=== PATIENT | female | born 1945 | race Caucasian/White ===

== ENCOUNTER 2018-05-31 15:02 | Emergency (ER) | payer OTHER ==
[~2018-05-31] VITALS: Ht 175.3 cm; Wt 68.0 kg
[~2018-05-31 15:02] MED LIST: CRUTCH3 USE; HYDACE5 PO
[2018-05-31] MEDS ORDERED: SPIRIVA RESPIMAT4 GM IH (15:14)
[2018-05-31] MEDS ORDERED: Advair Hfa 230-12 GM (15:14)
[2018-05-31] MEDS ORDERED: LEVSOD50 PO (15:14)
[2018-05-31 15:53] LABS: BASOPHILS ABSOLUTE AUTO 0.04 K/mm3 (0.00-0.23); BASOPHILS PERCENT AUTO 1 % (0-2); EOSINOPHILS PERCENT AUTO 2 % (0-6); Hematocrit 40.4 % (33.0-51.0); Hemoglobin 12.7 g/dL (11.5-16.0); IMMATURE GRAN ABSOLUTE AUTO 0.01 K/mm3 (0.00-0.10); IMMATURE GRAN PERCENT AUTO 0 % (0-1); LYMPHOCYTES ABSOLUTE AUTO 1.14 K/mm3 (0.84-5.20); LYMPHOCYTES PERCENT AUTO 20 % (21-46); MONOCYTES ABSOLUTE AUTO 0.37 K/mm3 (0.16-1.47); MONOCYTES PERCENT AUTO 7 % (4-13); Mean Corpuscular HGB 29.7 pg (26.0-34.0); Mean Corpuscular HGB Conc 31.4 g/dL (31.5-36.5); Mean Corpuscular Volume 95 fL (80-100); Mean Platelet Volume 10.6 fL (9.1-12.4); NEUTROPHILS ABSOLUTE AUTO 4.06 K/mm3 (1.96-9.15); NEUTROPHILS PERCENT AUTO 71 % (41-73); Platelet Count 210 K/mm3 (150-400); RDW Coefficient Variation 12.3 % (11.7-14.2); RDW Standard Deviation 42.7 fL (35.1-46.3); Red Blood Cell Count 4.27 M/mm3 (3.80-5.20); White Blood Cell Count 5.72 K/mm3 (4.00-11.30)
[2018-05-31 16:17] LABS: Alanine Aminotransfer (ALT/SGP 22 U/L (12-78); Albumin, Blood 3.6 g/dL (3.4-5.0); Albumin/Globulin Ratio 0.9 (0.8-1.8); Alk Phos 64 U/L (50-136); Anion Gap 6 mmol/L (6-16); Aspartate Aminotrans (AST/SGOT 20 U/L (12-37); Bilirubin, Total 0.5 mg/dL (0.1-1.0); Blood Urea Nitrogen 8 mg/dL (8-24); Bun/Creatinine Ratio 11.2 (12.0-20.0); CO2, Blood 27 mmol/L (21-32); Calcium, Blood 8.6 mg/dL (8.5-10.1); Chloride, Blood 107 mmol/L (98-108); Creatinine, Blood 0.71 mg/dL (0.40-1.00); Globulin, Blood 4.1 g/dL (2.2-4.0); Glomerular Filtration Rate >60 (60-); Glucose, Blood 87 mg/dL (70-99); Potassium, Blood 3.7 mmol/L (3.5-5.5); Sodium, Blood 140 mmol/L (136-145); Total Protein, Blood 7.7 g/dL (6.4-8.2); Troponin I <0.015 ng/mL (0.000-0.040)
== END 2018-05-31 18:04 | disposition home or self-care (01) ==
LOC: ER 15:02
PROVIDERS: Emergency Medicine
DX: R07.89 Other chest pain (principal); Z79.899 Other long term (current) drug therapy; J44.9 Chronic obstructive pulmonary disease, unspecified; Z87.891 Personal history of nicotine dependence
CPT/HCPCS: 36415; 71046; 71260; 80053; 83690; 84484; 85025; 93005; 93010; 99284-25; Q9967

== ENCOUNTER → 2018-10-29 | Outpatient (CLI) | payer OTHER ==
[~2018-10-29] MED LIST changes: +Advair Hfa 230-12 GM; +LEVSOD50 PO; +SPIRIVA RESPIMAT4 GM IH
== END | disposition home or self-care (01) ==
LOC: PLD 08:41 → LAB SHORT 08:41
DX: C44.321 Squamous cell carcinoma of skin of nose (principal)
CPT/HCPCS: 88305

== ENCOUNTER → 2021-04-05 | Outpatient (CLI) | payer OTHER | LOC: LAB SHORT 11:37 | DX: C44.311 Basal cell carcinoma of skin of nose (principal) | CPT/HCPCS: 88305 ==

== ENCOUNTER → 2021-06-24 | Outpatient (CLI) | payer OTHER | END | disposition home or self-care (01) | LOC: LAB SHORT 11:05 | DX: D04.62 Carcinoma in situ of skin of left upper limb, including shoulder (principal) | CPT/HCPCS: 88305 ==

== ENCOUNTER → 2021-06-30 | Outpatient (CLI) | payer OTHER | END | disposition home or self-care (01) | LOC: LAB SHORT 15:03 | DX: D04.62 Carcinoma in situ of skin of left upper limb, including shoulder (principal) | CPT/HCPCS: 88305 ==

== ENCOUNTER 2022-04-07 16:47 | Emergency (ER) | payer OTHER ==
[~2022-04-07] VITALS: Ht 175.3 cm; Wt 63.5 kg
[2022-04-07 17:59] LABS: Influenza A, PCR NEGATIVE (NEGATIVE); Influenza B, PCR NEGATIVE (NEGATIVE); Resp Syncytial Virus, PCR NEGATIVE (NEGATIVE)
[2022-04-07 18:03] LABS: SARS-Cov-2 (COVID-19) PCR, MMC POSITIVE (NEGATIVE)
== END 2022-04-07 19:50 | disposition home or self-care (01) ==
LOC: ER 16:47
PROVIDERS: Physician Assistant
DX: U07.1 COVID-19 (principal); Z79.899 Other long term (current) drug therapy
CPT/HCPCS: 0241U

== ENCOUNTER → 2022-12-16 | Outpatient (CLI) | payer OTHER ==
[2022-12-16 17:00] LABS: BASOPHILS ABSOLUTE AUTO 0.04 K/mm3 (0.00-0.23); BASOPHILS PERCENT AUTO 1 % (0-2); EOSINOPHILS ABSOLUTE AUTO 0.07 K/mm3 (0.00-0.68); EOSINOPHILS PERCENT AUTO 2 % (0-6); Hematocrit 37.1 % (33.0-51.0); Hemoglobin 12.1 g/dL (11.5-16.0); IMMATURE GRAN PERCENT AUTO 0 % (0-1); LYMPHOCYTES ABSOLUTE AUTO 1.12 K/mm3 (0.84-5.20); LYMPHOCYTES PERCENT AUTO 28 % (21-46); MONOCYTES PERCENT AUTO 7 % (4-13); Mean Corpuscular HGB 29.6 pg (26.0-34.0); Mean Corpuscular HGB Conc 32.6 g/dL (31.5-36.5); Mean Corpuscular Volume 91 fL (80-100); Mean Platelet Volume 10.2 fL (9.1-12.4); NEUTROPHILS PERCENT AUTO 62 % (41-73); Platelet Count 169 K/mm3 (150-400); RDW Coefficient Variation 12.3 % (11.7-14.2); RDW Standard Deviation 40.9 fL (35.1-46.3); Red Blood Cell Count 4.09 M/mm3 (3.80-5.20); White Blood Cell Count 4.03 K/mm3 (4.00-11.30)
[2022-12-16 19:53] LABS: Albumin, Blood 3.6 g/dL (3.4-5.0); Albumin/Globulin Ratio 1.1 (0.8-1.8); Bilirubin, Total 0.5 mg/dL (0.1-1.0); Bun/Creatinine Ratio 17.6 (12.0-20.0); Calcium, Blood 8.8 mg/dL (8.5-10.1); Creatinine, Blood 0.74 mg/dL (0.40-1.00); Globulin, Blood 3.4 g/dL (2.2-4.0); Potassium, Blood 3.8 mmol/L (3.5-5.5); Thyroid Stimulating Hormone 0.76 uIU/mL (0.360-4.800)
== END ==
LOC: LAB 15:49 → LAB SHORT 15:49
PROVIDERS: Family Medicine
DX: Z13.6 Encounter for screening for cardiovascular disorders (principal); F03.90 Unspecified dementia, unspecified severity, without behavioral disturbance, psychotic disturbance, mood disturbance, and anxiety
CPT/HCPCS: 36415; 80053; 82607; 82746; 84443; 85025; 86592

== ENCOUNTER 2023-06-14 22:19 | Inpatient (IN) | payer OTHER ==
[~2023-06-14] VITALS: Ht 177.8 cm; Wt 63.2 kg
[~2023-06-14 22:19] MED LIST changes: +EUTHYROX50 MCG PO; -LEVSOD50 PO
[2023-06-14 22:35] LABS: BASOPHILS ABSOLUTE AUTO 0.04 K/mm3 (0.00-0.23); BASOPHILS PERCENT AUTO 1 % (0-2); EOSINOPHILS ABSOLUTE AUTO 0.06 K/mm3 (0.00-0.68); EOSINOPHILS PERCENT AUTO 1 % (0-6); Hemoglobin 11.1 g/dL (11.5-16.0); IMMATURE GRAN ABSOLUTE AUTO 0.11 K/mm3 (0.00-0.10); IMMATURE GRAN PERCENT AUTO 1 % (0-1); LYMPHOCYTES ABSOLUTE AUTO 1.23 K/mm3 (0.84-5.20); LYMPHOCYTES PERCENT AUTO 16 % (21-46); MONOCYTES ABSOLUTE AUTO 0.46 K/mm3 (0.16-1.47); MONOCYTES PERCENT AUTO 6 % (4-13); Mean Corpuscular HGB 29.6 pg (26.0-34.0); Mean Corpuscular HGB Conc 32.6 g/dL (31.5-36.5); Mean Corpuscular Volume 91 fL (80-100); Mean Platelet Volume 10.1 fL (9.1-12.4); NEUTROPHILS PERCENT AUTO 75 % (41-73); Platelet Count 159 K/mm3 (150-400); RDW Coefficient Variation 12.4 % (11.7-14.2); Red Blood Cell Count 3.75 M/mm3 (3.80-5.20)
[2023-06-14 22:51] LABS: Albumin, Blood 3.5 g/dL (3.4-5.0); Albumin/Globulin Ratio 1.1 (0.8-1.8); Bilirubin, Total 0.4 mg/dL (0.1-1.0); Bun/Creatinine Ratio 22.4 (12.0-20.0); Calcium, Blood 8.8 mg/dL (8.5-10.1); Creatinine, Blood 0.71 mg/dL (0.40-1.00); Globulin, Blood 3.1 g/dL (2.2-4.0); Potassium, Blood 3.8 mmol/L (3.5-5.5); Total Protein, Blood 6.6 g/dL (6.4-8.2)
[2023-06-14] MEDS ORDERED: FentaNYL Citrate 50 MCG/ML 2 ML Injection IV ONE (23:35)
[2023-06-15 02:40] LABS: Source, Urine Clean Catch
[2023-06-15 02:43] LABS: Bilirubin, Urine Neg (Neg); Blood, Urine Neg (Neg); Glucose Qualitative, Urine Neg (Neg); Ketones, Urine Neg (Neg); Leukocyte Esterase, Urine Neg (Neg); Nitrite, Urine Neg (Neg); Protein, Urine Neg (Neg); Urobilinogen, Urine NORM (Normal)
[2023-06-15] MEDS ORDERED: Ketorolac Tromethamine 30mg Vial IV ONE (02:55)
[2023-06-15 02:59] LABS: Appearance, Urine Clear (Clear); Color, Urine Yellow (P-Yellow)
[2023-06-15] MEDS ORDERED: NS 1,000 ML IV SCH (04:15)
[2023-06-15] MEDS ORDERED: FentaNYL Citrate 50 MCG/ML 2 ML Injection IV PRN (06:10)
[2023-06-15 06:29] VITALS: BP 140/91
[2023-06-15 07:44] VITALS: BP 116/75
[2023-06-15] MEDS ORDERED: FLU VACC QS2023-24(6MOS UP)/PF 60 MCG/0.5 ML SYRINGE IM SCH (09:30)
[2023-06-15] MEDS ORDERED: HYDROcodone 5-APAP 325 TAB PO PRN (09:30)
[2023-06-15] MEDS ORDERED: Ondansetron HCl 2 MG / ML 2ML Vial IV PRN (09:35)
[2023-06-15] MEDS ORDERED: Ondansetron 4 MG TAB PO PRN (09:35)
[2023-06-15 15:11] VITALS: BP 102/59
--- NOTE | 2023-06-15 16:47 | NUR ---
SHIFT SUMMARY PATIENT IS ALERT AND ORIENTED X3. PATIENT HAS HAD NO ACUTE EVENTS THIS SHIFT. VITAL SIGNS REVIEWED. PATIENT HAS NOT BEEN IMPULSIVE THIS SHIFT. ORTHO WAS CONSULTED AND DETERMINED PELVIC FX DOES NOT NEED SURGERY AND ONLY NEED REHAB. PT AND OT WILL SEE PATIENT IN THE AM. PATIENT HAS BEEN IN PAIN AND MEDICATED PER EMAR. PATIENT HAS NOT HAD ANY COMPLAINTS OF SOB, NAUSEA, VOMITTING THIS SHIFT. BED ALARM IS ON. BED IN LOCKED AND LOWEST POSITION. CALL LIGHT IN PLACE. WILL MONITOR UNTIL SHIFT CHANGE.
[2023-06-15 20:22] VITALS: BP 129/77
[2023-06-16 03:03] VITALS: BP 148/72
--- NOTE | 2023-06-16 03:52 | NUR ---
CAPSULE FILLING MACHINE OPERATOR SUMMARY PT SLEPT THROUGH THE NIGHT, WAKING TWICE. PT UNABLE TO TELL ME HER BIRTHDAY. SHE WAS CONFUSED ABOUT THE DATE AND TIME. SHE ASKED ME TO REPEAT THE TIME 3 TIMES UNTIL I TOLD HER THAT IT WAS THE MIDDLE OF THE NIGHT. SHE THEN DECIDED TO TRY AND GO BACK TO SLEEP. PURWICK IN PLACE AND PT RESTING COMFORTABLY. PT MEDICATED FOR L HIP PAIN WITH NORCO X1. NO ACUTE CHANGES THIS SHIFT. 06/16/23 JENNIFER CABRERA RN
[2023-06-16] MEDS ORDERED: Levothyroxine Sodium 0.05 MG Tab PO SCH (06:00)
[2023-06-16 07:31] VITALS: BP 135/84
--- NOTE | 2023-06-16 15:22 | NUR ---
SHIFT SUMMARY MS NERY REBOLLEDO IS CONFUSED, BUT CALM, PLEASANT AND WANING IN HER CONFUSEION AND ABLE TO HAVE APPROPRIATE CONVERSATIONS. UP TO THE BATHROOM SEVERAL TIMES WITH 1 PERSON ASSIST, GAIT BELT AND FWW. STEADY BUT SHE NEEDS FREQUENT REMINDERS ON DIRECTION AND HOW TO USE THE WALKER. SHE SAT UP IN THE CHAIR A COUPLE OF TIMES, WORKED WITH O.T. AND P.T. HER VISITED HER TODAY. EMESIS X 1 EARLY THIS MORNING WITH NO REOCCURANCE. PAIN REASONABLY WELL CONTROLLED WITH FENTANYL AND NORCO. BED AND CHAIR ALARMS IN USE. CALL LIGHT IN REACH.
[2023-06-16 16:18] VITALS: BP 108/62
[2023-06-16 20:43] VITALS: BP 117/61
--- NOTE | 2023-06-17 04:25 | NUR ---
END OF SHIFT SUMMARY PT A&O x1-2 FLUCTUATING; PT UNABLE TO RECALL HER FULL NAME NOR HER . PT IMPULSIVE, PT GOT UP OOB ON HER OWN. BED ALARM TURNED ON. PT REMINDED TO USE CALL LIGHT FOR ASSISTANCE WITH TOILETING. PT 1P SBA WITH FWW AND GB FOR SAFETY. PT CONTINENT OF B/B. PT C/O PAIN TO L HIP AFTER USING THE RESTROOM. PAIN MANAGED WITH PRN IV FENTANYL, WHICH WAS EFFECTIVE. 0415: PT APPEARS TO BE RESTING PEACEFULLY IN BED. CALL LIGHT WITHIN REACH, WCTM.
[2023-06-17 04:49] VITALS: BP 125/68
[2023-06-17 06:19] LABS: BASOPHILS ABSOLUTE AUTO 0.03 K/mm3 (0.00-0.23); BASOPHILS PERCENT AUTO 1 % (0-2); EOSINOPHILS ABSOLUTE AUTO 0.12 K/mm3 (0.00-0.68); EOSINOPHILS PERCENT AUTO 3 % (0-6); Hematocrit 30.7 % (33.0-51.0); IMMATURE GRAN ABSOLUTE AUTO 0.03 K/mm3 (0.00-0.10); IMMATURE GRAN PERCENT AUTO 1 % (0-1); LYMPHOCYTES ABSOLUTE AUTO 0.72 K/mm3 (0.84-5.20); LYMPHOCYTES PERCENT AUTO 15 % (21-46); MONOCYTES ABSOLUTE AUTO 0.42 K/mm3 (0.16-1.47); MONOCYTES PERCENT AUTO 9 % (4-13); Mean Corpuscular HGB 29.5 pg (26.0-34.0); Mean Corpuscular HGB Conc 32.6 g/dL (31.5-36.5); Mean Corpuscular Volume 91 fL (80-100); Mean Platelet Volume 10.2 fL (9.1-12.4); NEUTROPHILS ABSOLUTE AUTO 3.46 K/mm3 (1.96-9.15); NEUTROPHILS PERCENT AUTO 72 % (41-73); Platelet Count 107 K/mm3 (150-400); RDW Coefficient Variation 12.5 % (11.7-14.2); RDW Standard Deviation 40.9 fL (35.1-46.3); Red Blood Cell Count 3.39 M/mm3 (3.80-5.20); White Blood Cell Count 4.78 K/mm3 (4.00-11.30)
[2023-06-17 08:15] LABS: Bun/Creatinine Ratio 17.3 (12.0-20.0); Calcium, Blood 8.3 mg/dL (8.5-10.1); Creatinine, Blood 0.64 mg/dL (0.40-1.00); Potassium, Blood 3.9 mmol/L (3.5-5.5)
[2023-06-17 08:54] VITALS: BP 94/66
[2023-06-17 08:55] VITALS: BP 94/66
[2023-06-17 09:15] VITALS: BP 100/59
[2023-06-17] MEDS ORDERED: Polyethylene Glycol 3350 17 gm PO PRN (10:40)
[2023-06-17 15:47] VITALS: BP 101/63
--- NOTE | 2023-06-17 15:48 | NUR ---
SHIFT NOTE MS NERY REBOLLEDO WAS ORIENTATED TO HERSELF, LOCATION, THAT SHE WAS HERE AFTER FALLING, NOT TO DATE. C/O HEADACHE AND HIP PAIN THIS MORNING - HIP PAIN EASED WITH NORCO AND HEADACHE WENT AWAY. C/O CONSTIPATION. GIVEN MIRILAX AND PRUNE JUICE, AWAITING RESULTS. AMBULATING WITH 1 PERSON STAND BY ASSIST, GAIT BELT AND WALKER TO THE BATHROOM AND CHAIR SEVERAL TIMES. SHE IS USING WALKER BETTER TODAY AND HAS BEEN STEADY MOVING AROUND. SHE FORGETS TO USE CALL LIGHT, BED AND CHAIR ALARMS IN USE. VISITING NOW. SHE HAS BEEN SCRATCHING HER BUTTOCKS CAUSING RED SCRATCH WHITE AND SMALL SKIN WOUNDS. ZINC OINTMENT APLIED AFTER EACH BATHROOM VISIT WITH SOME RELIEF.
[2023-06-17 19:32] VITALS: BP 126/75
[2023-06-18 04:01] VITALS: BP 125/72
--- NOTE | 2023-06-18 04:32 | NUR ---
END OF SHIFT SUMMARY PT A&O x2-3, VSS, AFEBRILE. PT SLEPT WELL THROUGHOUT THE NIGHT. PT IMPULSIVE AND GOT UP A COUPLE TIMES DURING THE NIGHT. BED ALARM TURNED ON FOR SAFETY. PRN NORCO GIVEN FOR PAIN TO L HIP, WHICH WAS EFFECTIVE. FREQUENT SAFETY CHECKS COMPLETED THROUGHOUT THE SHIFT. PT EDUCATION PROVIDED REGARDING FALL PREVENTION, WILL CONTINUE TO REINFORCE IMPORTANCE OF CALLING BEFORE GETTING UP OOB. 1 BROWN COW GIVEN TO HELP PT HAVE A BOWEL MOVEMENT. BOWEL TONES HEARD, ABD TENDER TO TOUCH, PT STATED SHE IS PASSING GAS. CALL LIGHT WITHIN REACH, WCTM.
[2023-06-18 07:34] VITALS: BP 121/70
[2023-06-18] MEDS ORDERED: Psyllium 1 EA Pack PO SCH (09:00)
[2023-06-18] MEDS ORDERED: Metoprolol Succinate 25 MG TABCR PO SCH (09:00)
[2023-06-18] MEDS ORDERED: Enoxaparin 40 MG/0.4 ML SYR SC SCH (13:00)
--- NOTE | 2023-06-18 16:13 | NUR ---
SHIFT SUMMARY MS NERY REBOLLEDO IS ORIENTATED TO SELF, MONTH, REASON FOR BEING IN HOSPITAL AND SOMETIMES TO HOSPITAL. SHE HAS BEEN UP TO THE BATHROOM WITH GB, FWW AND 1 PERSON ASSIST. SHE IS REASONABLY STEADY, NEEDING SOME DIRECTION SHE IS FORGETFUL. SHE HAS NOT HAD A BM DESPITE TAKING MULTIPLE LAXATIVES, PRUNE JUICE AND PO FLUIDS ENCOURAGED. PLAN TO CONTINUE TO ENCOURAGE MORE MOBILITY. PAIN CONTROLLED WITH NORCO PO, NO IV FENTANYL GIVEN FOR PAIN. IN CHAIR WITH CALL LIGHT IN REACH AND CHAIR ALARM ON. SHE DOES NOT USE CALL LIGHT.
[2023-06-18 16:37] VITALS: BP 113/65; BP 127/66
[2023-06-18 20:05] VITALS: BP 116/64
--- NOTE | 2023-06-19 00:50 | NUR ---
06/18/231944 PT SITTING IN CHAIR, STATES PAIN IS A ZERO BUT INCREASES WITH MOVEMENT. GEAR CODING MACHINE OPERATOR ABOUT TO ASSIST PT BACK TO MED, WILL MEDICATE WITH PAIN MED NOW AND EVAL FOR EFFECT. BRUISE ON L SIDE, REDNESS ON BOTTOM FROM SCRATCHING/ITCHY. NO OTHER APPARENT SIGNS OF DISTRESS. CALL LIGHT IS IN REACH. PT HAS CHAIR ALARM ON.
--- NOTE | 2023-06-19 01:11 | NUR ---
06/18/23 2200 PT LYING IN BED, EYES CLOSED, APPEARS TO BE RESTING. BREATHING IS EVEN, UNLABORED. NO APPARENT SIGNS OF DISTRESS. CALL LIGHT IS IN REACH. BED ALARM IS ON.
--- NOTE | 2023-06-19 01:12 | NUR ---
0030 MELTING SUPERVISOR IN PT'S ROOM ASSISTING THEM TO THE BSC, PT DENIES NEED FOR ANYTHING ELSE AT THIS TIME. NO OTHER APPARENT SIGNS OF DISTRESS. CALL LIGHT IS IN REACH.
--- NOTE | 2023-06-19 02:53 | NUR ---
0200 PT LYING IN BED, EYES CLOSED, APPEARS TO BE RESTING. BREATHING IS EVEN, UNLABORED. NO APPARENT SIGNS OF DISTRESS. CALL LIGHT IS IN REACH. BED ALARM IS ON.
[2023-06-19 03:19] VITALS: BP 135/79
--- NOTE | 2023-06-19 04:59 | NUR ---
PT WAS ASSISTED TO BATHROOM AND BACK TO BED, REQUESTED AND RECIEVED PAIN MEDS, WILL EVAL FOR EFFECT. DENIES NEED FOR ANYTHING ELSE AT THIS TIME. NO OTHER APPARENT SIGNS OF DISTRESS. CALL LIGHT IS IN REACH .BED ALARM IS ON.
--- NOTE | 2023-06-19 04:59 | NUR ---
PT IS AAO X 2-3, ON RA. WAS NOT ABLE TO TOLERATE THE SCD'S BUT HAS ANTIEMBOLIC STOCKINGS ON. PAIN IN L HIP AND PEVIC AREA, GOT NORCO 2 X 2. BRUISE ON L SIDE. BOTTOM RED FROM STRATCHING/ITCHING, USING CREAM ON BOTTOM.
--- NOTE | 2023-06-19 07:49 | NUR ---
0630 PT LYING IN BED, EYES CLOSED, APPEARS TO BE RESTING. BREATHING IS EVEN, UNLABORED. NO APPARENT SIGNS OF DISTRESS. CALL LIGHT IS IN REACH. BED ALARM IS ON. NO OTHER CHANGES THIS SHIFT.
[2023-06-19 08:04] VITALS: BP 119/66
[2023-06-19 08:45] LABS: BASOPHILS ABSOLUTE AUTO 0.04 K/mm3 (0.00-0.23); BASOPHILS PERCENT AUTO 1 % (0-2); EOSINOPHILS ABSOLUTE AUTO 0.14 K/mm3 (0.00-0.68); EOSINOPHILS PERCENT AUTO 4 % (0-6); Hematocrit 33.8 % (33.0-51.0); Hemoglobin 10.7 g/dL (11.5-16.0); IMMATURE GRAN ABSOLUTE AUTO 0.01 K/mm3 (0.00-0.10); IMMATURE GRAN PERCENT AUTO 0 % (0-1); LYMPHOCYTES ABSOLUTE AUTO 0.82 K/mm3 (0.84-5.20); LYMPHOCYTES PERCENT AUTO 21 % (21-46); MONOCYTES ABSOLUTE AUTO 0.36 K/mm3 (0.16-1.47); MONOCYTES PERCENT AUTO 9 % (4-13); Mean Corpuscular HGB 29.2 pg (26.0-34.0); Mean Corpuscular HGB Conc 31.7 g/dL (31.5-36.5); Mean Corpuscular Volume 92 fL (80-100); Mean Platelet Volume 10.2 fL (9.1-12.4); NEUTROPHILS ABSOLUTE AUTO 2.51 K/mm3 (1.96-9.15); NEUTROPHILS PERCENT AUTO 65 % (41-73); Platelet Count 156 K/mm3 (150-400); RDW Coefficient Variation 12.5 % (11.7-14.2); RDW Standard Deviation 42.5 fL (35.1-46.3); Red Blood Cell Count 3.66 M/mm3 (3.80-5.20); White Blood Cell Count 3.88 K/mm3 (4.00-11.30)
[2023-06-19 09:09] LABS: Bun/Creatinine Ratio 18.3 (12.0-20.0); Calcium, Blood 8.6 mg/dL (8.5-10.1); Creatinine, Blood 0.6 mg/dL (0.40-1.00)
[2023-06-19] MEDS ORDERED: Bisacodyl 5 MG TabEC PO PRN (09:45)
[2023-06-19] MEDS ORDERED: Bisacodyl 10 MG Supp PR PRN (09:45)
[2023-06-19] MEDS ORDERED: Sennosides 8.6 MG Tab PO PRN (09:45)
[2023-06-19] MEDS ORDERED: Norco 5-325 Ta1 EACH PO (14:47)
[2023-06-19] MEDS ORDERED: METO25ER PO (14:47)
[2023-06-19 16:15] LABS: SARS-Cov-2 (COVID-19) PCR, MMC NEGATIVE (NEGATIVE)
--- NOTE | 2023-06-19 18:50 | NUR ---
SUMMARY- PT A/O X3, FORGETFUL TO USE CALL LIGHT, NEEDS FREQ REORIENTATING AND REMINDERS. BED AND CHAIR ALARM SET OFF A FEW TIMES TODAY. PT IS SBA WITH WALKER, PAIN IN L HIP WITH AMBULATION, BUT HAS GOOD STRENGTH AND GAIT. UP IN CHAIR MOST OF THE DAY. NORCO FOR PAIN EFFECTIVE. PLAN FOR DC TO [facility]45./ TOLERATING FOOD AND FLUID. REPORTED TO TOO GALLARDO RN. REPORTED TO RN AT [facility].
== END 2023-06-19 19:30 | DRG 536 ==
LOC: ER 22:19 → MEDS 22:20 → ER 22:20 → MEDS 22:20 → SURS 22:20 → MEDS 22:21 → ER 22:21 → MEDS 22:21 → SURS 06-15 04:30 → MEDS 06-15 04:30 → SURS 06-15 04:30 → MEDS 06-15 06:17 → SURS 06-15 06:17 → MEDS 06-15 09:29 → SURS 06-16 16:09 → MEDS 06-16 16:09
PROVIDERS: Emergency Medicine; Family Medicine; Hospitalist; ADMIT Surgery
DX: S32.512A Fracture of superior rim of left pubis, initial encounter for closed fracture (principal); S32.110A Nondisplaced Zone I fracture of sacrum, initial encounter for closed fracture; S32.592A Other specified fracture of left pubis, initial encounter for closed fracture; E86.0 Dehydration; I10 Essential (primary) hypertension; E89.0 Postprocedural hypothyroidism; F03.90 Unspecified dementia, unspecified severity, without behavioral disturbance, psychotic disturbance, mood disturbance, and anxiety; J44.9 Chronic obstructive pulmonary disease, unspecified; M81.0 Age-related osteoporosis without current pathological fracture; W01.0XXA Fall on same level from slipping, tripping and stumbling without subsequent striking against object, initial encounter; Y93.K1 Activity, walking an animal; Z87.891 Personal history of nicotine dependence; Z79.890 Hormone replacement therapy; Z11.52 Encounter for screening for COVID-19
CPT/HCPCS: 36415; 72192; 73502; 74177; 80048; 80053; 81003; 85025; 93005; 93010; 96374-59; 96375; 96376; 97116; 97162; 97165; 97530; 97535; 99285-25; A9270; G0378; J1650; J1885; J3010; J7030; Q9967; U0002

== ENCOUNTER 2023-12-27 12:10 | Day surgery (SDC) | payer OTHER ==
[~2023-12-27] VITALS: Ht 177.8 cm; Wt 56.9 kg
[~2023-12-27 12:10] MED LIST changes: +Balanced Salt Epinephrine Irrigation Solution 500 mL IR SCH; +Lidocaine HCl/Pf 1% 5 ML VIAL ONE; +Lidocaine HCl/Pf 1% 5 ML VIAL XX SCH; +METO25ER PO; +METO50ER PO; +Moxifloxacin HCL 0.5 MG/0.1 ML 0.4MLSYR LEFTEYE SCH; +NS 500 ML IV ONE; +Norco 5-325 Ta1 EACH PO; +PHENYLEPHRINE\\TROPICAMIDE\\TETRACAINE OPHTHALMIC DILATING SOLN LEFTEYE PRN; +Povidone-Iodine 450 DROP/30 ML Solution LEFTEYE SCH; +Triamcinolone Inj Susp 40 MG / ML 1ML Vial INJ SCH; +Triamcinolone Inj Susp 40 MG / ML 1ML Vial ONE
[2023-12-27] MEDS ORDERED: Lactated Ringer's 1,000 ML IV ONE (12:45)
[2023-12-27] MEDS ORDERED: Midazolam HCl 1MG / ML 2ML Vial ONE ×2 (13:13→14:42)
[2023-12-27] MEDS ORDERED: FentaNYL Citrate 50 MCG/ML 2 ML Injection ONE (13:13)
[2023-12-27] MEDS ORDERED: NS 500 ML IV ONE (13:20)
[2023-12-27 14:14] VITALS: BP 138/64
[2023-12-27] MEDS ORDERED: HydrALAZINE HCl 20 MG / ML 1ML Vial ONE (14:30)
[2023-12-27] MEDS ORDERED: Ondansetron HCl 2 MG / ML 2ML Vial ONE (15:30)
[2023-12-27] MEDS ORDERED: Dexamethasone Sod Phos 10 MG/ML 1ML VIAL ONE (15:30)
== END 2023-12-27 14:21 | disposition home or self-care (01) ==
LOC: ORSCSDS 12:10
PROVIDERS: Ophthalmology
PROC: 08RK3JZ Replacement of Left Lens with Synthetic Substitute, Percutaneous Approach (ICD-10-PCS; principal; 2023-12-27 13:30)
DX: H25.812 Combined forms of age-related cataract, left eye (principal); Z96.1 Presence of intraocular lens; I10 Essential (primary) hypertension; F03.90 Unspecified dementia, unspecified severity, without behavioral disturbance, psychotic disturbance, mood disturbance, and anxiety; Z79.899 Other long term (current) drug therapy
CPT/HCPCS: J0360; J1100; J2001; J2250; J2405; J3010; J3301; J7040; V2632

== ENCOUNTER 2024-06-01 18:59 | Observation (INO) | payer OTHER ==
[~2024-06-01] VITALS: Ht 170.2 cm; Wt 61.2 kg
[~2024-06-01 18:59] MED LIST changes: -Balanced Salt Epinephrine Irrigation Solution 500 mL IR SCH; -Lidocaine HCl/Pf 1% 5 ML VIAL ONE; -Lidocaine HCl/Pf 1% 5 ML VIAL XX SCH; -Moxifloxacin HCL 0.5 MG/0.1 ML 0.4MLSYR LEFTEYE SCH; -NS 500 ML IV ONE; -PHENYLEPHRINE\\TROPICAMIDE\\TETRACAINE OPHTHALMIC DILATING SOLN LEFTEYE PRN; -Povidone-Iodine 450 DROP/30 ML Solution LEFTEYE SCH; -Triamcinolone Inj Susp 40 MG / ML 1ML Vial INJ SCH; -Triamcinolone Inj Susp 40 MG / ML 1ML Vial ONE
[2024-06-01 19:39] LABS: BASOPHILS ABSOLUTE AUTO 0.01 K/mm3 (0.00-0.23); BASOPHILS PERCENT AUTO 0 % (0-2); EOSINOPHILS ABSOLUTE AUTO 0.01 K/mm3 (0.00-0.68); EOSINOPHILS PERCENT AUTO 0 % (0-6); Hematocrit 40.6 % (33.0-51.0); Hemoglobin 13.5 g/dL (11.5-16.0); IMMATURE GRAN ABSOLUTE AUTO 0.03 K/mm3 (0.00-0.10); IMMATURE GRAN PERCENT AUTO 0 % (0-1); LYMPHOCYTES ABSOLUTE AUTO 0.38 K/mm3 (0.84-5.20); LYMPHOCYTES PERCENT AUTO 5 % (21-46); MONOCYTES ABSOLUTE AUTO 0.43 K/mm3 (0.16-1.47); MONOCYTES PERCENT AUTO 5 % (4-13); Mean Corpuscular HGB 30.3 pg (26.0-34.0); Mean Corpuscular HGB Conc 33.3 g/dL (31.5-36.5); Mean Corpuscular Volume 91 fL (80-100); Mean Platelet Volume 10.7 fL (9.1-12.4); NEUTROPHILS ABSOLUTE AUTO 7.42 K/mm3 (1.96-9.15); NEUTROPHILS PERCENT AUTO 90 % (41-73); Platelet Count 119 K/mm3 (150-400); RDW Coefficient Variation 13.2 % (11.7-14.2); RDW Standard Deviation 43.9 fL (35.1-46.3); Red Blood Cell Count 4.46 M/mm3 (3.80-5.20); White Blood Cell Count 8.28 K/mm3 (4.00-11.30)
[2024-06-01 19:47] LABS: Albumin, Blood 3.2 g/dL (3.4-5.0); Albumin/Globulin Ratio 0.8 (0.8-1.8); Bilirubin, Total 0.3 mg/dL (0.1-1.0); Bun/Creatinine Ratio 47.7 (12.0-20.0); Calcium, Blood 8.9 mg/dL (8.5-10.1); Creatinine, Blood 0.48 mg/dL (0.40-1.00); Globulin, Blood 3.8 g/dL (2.2-4.0); Potassium, Blood 4.4 mmol/L (3.5-5.5)
[2024-06-01] MEDS ORDERED: Aspirin 325 MG Tab PO ONE (19:55)
[2024-06-01] MEDS ORDERED: Clopidogrel Bisulfate 75 MG Tab PO ONE (19:55)
[2024-06-01 21:45] LABS: Influenza A, PCR NEGATIVE (NEGATIVE); Influenza B, PCR NEGATIVE (NEGATIVE); Resp Syncytial Virus, PCR NEGATIVE (NEGATIVE); SARS-Cov-2 (COVID-19) PCR, MMC NEGATIVE (NEGATIVE)
[2024-06-01 23:27] LABS: Source, Urine Straight Cath
[2024-06-01 23:29] LABS: Bilirubin, Urine Neg (Neg); Blood, Urine Neg (Neg); Glucose Qualitative, Urine Neg (Neg); Ketones, Urine Neg (Neg); Leukocyte Esterase, Urine Neg (Neg); Nitrite, Urine Neg (Neg); Protein, Urine 2+ (Neg); Specific Gravity, Urine 1.025 (1.003-1.022); Urobilinogen, Urine NORM (Normal)
[2024-06-01 23:43] LABS: Appearance, Urine Hazy (Clear); Color, Urine Yellow (P-Yellow)
[2024-06-01 23:44] LABS: Bacteria Few /hpf; Red Blood Cells, Urine 0-2 /hpf (0-2); Squamous Epithelial Cells Few /hpf (Few); White Blood Cells, Urine 0-2 /hpf (0-5)
[2024-06-02] MEDS ORDERED: FLU VACC TS2024-25(6MOS UP)/PF 45 MCG/0.5 ML SYRINGE IM ONE (00:25)
[2024-06-02] MEDS ORDERED: Ondansetron HCl 2 MG / ML 2ML Vial IV PRN (00:25)
[2024-06-02 00:32] LABS: U Amphetamine Screen Not Detected; U Barbituate Screen Not Detected; U Benzodiazapine Screen Not Detected; U Cocaine Screen Not Detected; U Methadone Screen Not Detected; U Methamphetamine Screen Not Detected; U Opiates Screen DETECTED; U Phencyclidine Screen Not Detected
[2024-06-02 00:33] LABS: U Buprenorphine Screen Not Detected; U Cannabinoids Screen Not Detected; U Oxycodone Screen Not Detected
[2024-06-02] MEDS ORDERED: FentaNYL Citrate 50 MCG/ML 2 ML Injection IV ONE (00:55)
[2024-06-02] MEDS ORDERED: Atorvastatin 40 MG Tab PO SCH (01:00)
[2024-06-02] MEDS ORDERED: OLANZapine 10 MG Vial IM ONE (02:55)
[2024-06-02] MEDS ORDERED: NS 1,000 ML IV SCH (04:17)
[2024-06-02 04:43] LABS: BASOPHILS ABSOLUTE AUTO 0.01 K/mm3 (0.00-0.23); BASOPHILS PERCENT AUTO 0 % (0-2); EOSINOPHILS ABSOLUTE AUTO 0.01 K/mm3 (0.00-0.68); EOSINOPHILS PERCENT AUTO 0 % (0-6); Hematocrit 39.5 % (33.0-51.0); IMMATURE GRAN ABSOLUTE AUTO 0.02 K/mm3 (0.00-0.10); IMMATURE GRAN PERCENT AUTO 0 % (0-1); LYMPHOCYTES ABSOLUTE AUTO 0.33 K/mm3 (0.84-5.20); LYMPHOCYTES PERCENT AUTO 5 % (21-46); MONOCYTES ABSOLUTE AUTO 0.25 K/mm3 (0.16-1.47); MONOCYTES PERCENT AUTO 4 % (4-13); Mean Corpuscular HGB 30.3 pg (26.0-34.0); Mean Corpuscular HGB Conc 32.9 g/dL (31.5-36.5); Mean Corpuscular Volume 92 fL (80-100); Mean Platelet Volume 10.3 fL (9.1-12.4); NEUTROPHILS ABSOLUTE AUTO 5.75 K/mm3 (1.96-9.15); NEUTROPHILS PERCENT AUTO 90 % (41-73); Platelet Count 98 K/mm3 (150-400); RDW Coefficient Variation 13.2 % (11.7-14.2); RDW Standard Deviation 44.6 fL (35.1-46.3); Red Blood Cell Count 4.29 M/mm3 (3.80-5.20); White Blood Cell Count 6.37 K/mm3 (4.00-11.30)
[2024-06-02 05:11] LABS: Albumin, Blood 3.1 g/dL (3.4-5.0); Albumin/Globulin Ratio 0.9 (0.8-1.8); Bilirubin, Total 0.4 mg/dL (0.1-1.0); Bun/Creatinine Ratio 43.9 (12.0-20.0); Calcium, Blood 8.7 mg/dL (8.5-10.1); Creatinine, Blood 0.46 mg/dL (0.40-1.00); Globulin, Blood 3.4 g/dL (2.2-4.0); Potassium, Blood 3.9 mmol/L (3.5-5.5); Total Protein, Blood 6.5 g/dL (6.4-8.2)
--- NOTE | 2024-06-02 06:13 | NUR ---
SHIFT SUMMARY PT ADMITTED TO [facility] AT 0155. PT RESTLESS AND AGITATED, UNABLE TO FOLLOW ANY DIRECTIONS, PT ABLE TO TALK, BUT WORDS NOT IN CONTEXT WITH QUESTIONS ASKED. PT NOT ORIENTED AT ALL, UNABLE TO STATE NAME, AND DOES NOT RESPOND WHEN NAME IS CALLED. , ARCHIE (PHONE # [phone]) AT BEDSIDE, STATES PT WITH DEMENTIA, BUT AT BASELINE KNOWS HER NAME, CAN HAVE CONVERSATIONS, AND FOLLOWS DIRECTION. FURTHER STATES PT IS COMPLETELY CONT. OF BOTH BLADDER AND BOWEL AT BASELINE. PT ASSISTED TO BSC WITH 2 MAX ASSIST, BUT DID NOT VOID. NO VOID SINCE PT ARRIVED TO UNIT. PT CONTINUED TO BE RESTLESS/AGITATED/ TRYING TO GET OUT OF BED WHEN DR AT BEDSIDE- ONE TIME ORDER FOR ZYPREXA GIVEN PER EMAR. PT CURRENTLY RESTING WITH EYES CLOSED. PT IS NPO- UNABLE TO PERFORM BEDSIDE SWALLOW STUDY DUE TO INABILITY TO FOLLOW ANY DIRECTION. PICTURES TAKEN OF BILATERAL FEET/TOES, RIGHT CALF SCAB, AND RIGHT ARM SCAB. LEGS/FEET BILAT ARE RED/ SWOLLEN WITH BLACK AREAS ON TIPS OF MULTIPLE TOES. PEDAL PULSES WITH DOPPLER. PT IS INCREASINGLY AGITATED WHEN FEET ARE TOUCHED. BED IN LOWEST POSITION, CALL LIGHT WITHIN REACH, SIDERAILS UP X3, BED ALARM ON.
[2024-06-02 07:32] VITALS: BP 119/85
--- NOTE | 2024-06-02 08:56 | NUR ---
CALL TO PATIENT'S , ARCHIE, TO COMPLETE MRI SCREENING FORM. COMPLETED AND FAXED TO MRI.
[2024-06-02] MEDS ORDERED: Metoprolol Succinate 50 MG TABCR PO SCH (09:00)
[2024-06-02] MEDS ORDERED: Clopidogrel Bisulfate 75 MG Tab PO SCH (09:00)
[2024-06-02] MEDS ORDERED: Enoxaparin 40 MG/0.4 ML SYR SC SCH (09:00)
[2024-06-02] MEDS ORDERED: Aspirin 81 MG Chew PO SCH (09:00)
[2024-06-02] MEDS ORDERED: Sodium Chloride 0.45% 1,000 ML IV SCH (15:30)
[2024-06-02 16:18] VITALS: BP 97/59
--- NOTE | 2024-06-02 16:55 | NUR ---
PT WAS AWAKE IN THE MORNING BUT WAS UNABLE TO FOLLOW ANY COMMAND AND SPEECH WAS VERY GARBBLED. UNSAFE TO GIVE MEDICATIONS TO PT AND TO DO A ANITA BEDSIDE SWALLOW EVAL. MD AWARE. PT WAS SWITCHED OVER TO DNR STATUS. PT WAS ALSO RETAINING WATER AND WAS UNABLE TO VOID. THIS NURSE STRIGHT CATHED PT X2 DURING THE SHIFT AND MD ORDERS PLACED FOR Q6 BLADDER SCAN WITH STRAIGHT CATH. SEE CHART FOR DETAILS ON VOID AMOUNT.
[2024-06-02 20:56] VITALS: BP 109/73
[2024-06-03 03:38] VITALS: BP 116/75
--- NOTE | 2024-06-03 05:59 | NUR ---
PT UNABLE TO FOLLOW ANY DIRECTION, DOES NOT SEEM TO UNDERSTAND WHAT IS BEING SAID. PT DOES SAY SOME WORDS, BUT THEY DO NOT PERTAIN TO THE SITUATION. PT DOES SAY "OUCH" AND "HURTS" WHEN HER FEET OR LEGS ARE TOUCHED. PT IS ALLEN TO TURN HERSELF WELL IN THE BED AND REPOSITIONS SELF. PT RESTLESS/ AGITATED AT TIMES, BUT CALMS QUICKLY. PT STRAIGHT CATH'D PER ORDERS, BUT FIGHTS THE ENTIRE TIME. PT HAD NO SPONTANEOUS VOIDS. ATTEMPTED ORAL CARE MULTIPLE TIMES, BUT PT FIGHTS THIS WELL. PT REMAINS NPO WITH CONTINUOUS IVF RUNNING. BED IN LOWEST POSITION, CALL LIGHT WITHIN REACH, SIDERAILS UP X3.
[2024-06-03 06:11] LABS: BASOPHILS ABSOLUTE AUTO 0.01 K/mm3 (0.00-0.23); BASOPHILS PERCENT AUTO 0 % (0-2); EOSINOPHILS ABSOLUTE AUTO 0.02 K/mm3 (0.00-0.68); EOSINOPHILS PERCENT AUTO 1 % (0-6); Hematocrit 39.5 % (33.0-51.0); Hemoglobin 12.9 g/dL (11.5-16.0); IMMATURE GRAN ABSOLUTE AUTO 0.01 K/mm3 (0.00-0.10); IMMATURE GRAN PERCENT AUTO 0 % (0-1); LYMPHOCYTES ABSOLUTE AUTO 0.39 K/mm3 (0.84-5.20); LYMPHOCYTES PERCENT AUTO 9 % (21-46); MONOCYTES PERCENT AUTO 7 % (4-13); Mean Corpuscular HGB 30.4 pg (26.0-34.0); Mean Corpuscular HGB Conc 32.7 g/dL (31.5-36.5); Mean Corpuscular Volume 93 fL (80-100); Mean Platelet Volume 10.8 fL (9.1-12.4); NEUTROPHILS ABSOLUTE AUTO 3.68 K/mm3 (1.96-9.15); NEUTROPHILS PERCENT AUTO 84 % (41-73); Platelet Count 85 K/mm3 (150-400); RDW Coefficient Variation 13.6 % (11.7-14.2); RDW Standard Deviation 45.6 fL (35.1-46.3); Red Blood Cell Count 4.24 M/mm3 (3.80-5.20); White Blood Cell Count 4.41 K/mm3 (4.00-11.30)
[2024-06-03 06:32] LABS: Albumin, Blood 2.8 g/dL (3.4-5.0); Anion Gap 9 mmol/L (3-11); Blood Urea Nitrogen 14 mg/dL (8-24); Bun/Creatinine Ratio 29.8 (12.0-20.0); CO2, Blood 28 mmol/L (21-32); Chloride, Blood 107 mmol/L (98-108); Creatinine, Blood 0.47 mg/dL (0.40-1.00); Glomerular Filtration Rate 99 (60-); Glucose, Blood 63 mg/dL (70-99); Phosphorus, Blood 1.8 mg/dL (2.5-4.9); Potassium, Blood 4.1 mmol/L (3.5-5.5); Sodium, Blood 140 mmol/L (136-145)
--- NOTE | 2024-06-03 07:28 | NUR ---
ASSUMED CARE OF PATIENT. PATIENT SLEEPING SUPINE c HOB ELEVATED. 1/2 NS RUNNING. NO THRASHING OR PULLING AT LINES NOTED.
[2024-06-03 08:08] VITALS: BP 115/56
[2024-06-03] MEDS ORDERED: Sodium Phosphate 20 MM in Dextrose 5% 500 ML IV STA (09:07)
[2024-06-03] MEDS ORDERED: D5W-1/2NS 1,000 ML IV SCH (09:10)
[2024-06-03] MEDS ORDERED: Dextrose 50% 50 ML Vial IV PRN (10:00)
[2024-06-03] MEDS ORDERED: Dextrose 50% 50 ML Vial IV ONE (10:00)
--- NOTE | 2024-06-03 11:11 | NUR ---
PALLIATIVE CARE EVALUATION COLLABORTATIVE VISIT WITH BEDSIDE RN, PROVIDER AND THIS PC RN. NICKY IS NOT FOLLOWING DIRECTIONS. SPEECH THERAPY REPORTED TO THIS PC RN SHE WAS NOT ABLE TO COMPLETE BEDSIDE SWALLOW EVAL PT WOULD NOT OPEN HER MOUTH AND WAS TURNING HER HEAD AWAY. THIS PC RN ATTEMPTED TO HAND NICKY A WARM WASHCLOTH TO WASH HER FACE SHE WAS ABLE TO MOVE HER ARMS ABOVE HER HEAD. PT PULLED HER HAND AWAY WHEN THE WASH CLOTH TOUCHED HER HAND. SHE ALLOWED THIS PC RN TO WASH HER FACE THEN PULLED AWAY WITH ORAL CARE. BEDSIDE RN AND STUDENT RN ADMINISTERING MEDS PER EMAR. PROVIDER ASKED THIS PC RN TO CALL PT'S SPOUSE FOR A GOALS OF CARE CONVERSATION. PT'S SPOUSE, ARCHIE (PHONE [phone]) WILL BE COMING IN TO SEE PT LATER THIS MORNING. BEDSIDE RN TO CALL PC WHEN ARCHIE ARRIVES TO PT ROOM.
--- NOTE | 2024-06-03 12:14 | NUR ---
VERBAL ORDER FROM DR. MARROQUIN FOR SIMON CATH INSERTION. PATIENT VERY AGITATED AND PHYSICALLY RESISTING SIMON INSERTION. ATTEMPT CEASED AND PROVIDER CONTACTED. ORDERS TO BLADDER SCAN, COMPLETE PALLIATIVE CONVERSATION WITH FAMILY REGARDING GOALS OF CARE AND NOTIFY PROVIDER THIS WILL DETERMINE COURE OF ACTION FOR POSSIBLE MEDS TO HELP RELAX PATIENT FOR SIMON INSERTION.
[2024-06-03] MEDS ORDERED: Haloperidol Lactate 2 MG/ML Conc 1ML Dose PO PRN (12:35)
[2024-06-03] MEDS ORDERED: Scopolamine Hydrobromide Patch TOP PRN (12:35)
[2024-06-03] MEDS ORDERED: Promethazine HCl 25 MG Supp PR PRN (12:35)
[2024-06-03] MEDS ORDERED: Acetaminophen 650 MG Supp PR PRN (12:35)
[2024-06-03] MEDS ORDERED: Atropine Sulfate 1% Opth Soln 2ML BTL SL PRN (12:35)
[2024-06-03] MEDS ORDERED: Morphine Sulfate 20 MG/1ML 1 ML Oral Syringe SL PRN (12:40)
[2024-06-03] MEDS ORDERED: Lidocaine 2% Jelly Uro-Jet UR PRN (12:45)
[2024-06-03] MEDS ORDERED: FentaNYL Citrate 50 MCG/ML 2 ML Injection IV PRN (12:45)
[2024-06-03] MEDS ORDERED: LORazepam 0.5 MG Tab PO PRN (12:50)
--- NOTE | 2024-06-03 17:05 | NUR ---
GOAL OF CARE REVIEW WITH PT'S SPOUSE, ARCHIE REBOLLEDO AT PT'S BEDSIDE. PT'S FRIEND NETTIE IS ALSO PRESENT. THIS PC RN AND PC RN, MM REVIEWED PT'S CURRENT HEALTH STATUS. NICKY HAS NOT HAD ANY PO INTAKE IN 2+ DAYS. DRY MUCOSA. SHE IS NOT TOLERATING ORAL CARE. URINARY RETENTION CONTINUING S/P MULTIPULE STRAIGHT CATHS TO EMPTY BLADDER. HSBD REPORTS PT HAD A PELVIC FX IN JUN 2023. PT'S RESLESSNESS COULD BE D/T PRESSURE IN THE PELVIC REGION D/T DISTENDED BLADDER. SHE CONTINUES TO BE NON-VERBAL, NOT MAKING EYE CONTACT. SHE DOES GROAN ON OCCATION. ARCIHE ENDOURSES WANTING TO FOCUS CARE ON QUALITY OF LIFE AND STARTING COMFORT MEASURES ONLY. PROVIDER NOTIFIED. ORDERS OBTAINED AND PLACED ACCORDINGLY. PRIMARY RN AND CM NOTIFIED OF CHANGES. PC TO REMAIN AVAILABLE NEEDED.
--- NOTE | 2024-06-03 18:19 | NUR ---
INTERMITTENTLY ALERT. ORIENTED TO SELF AND . RESPONDS "YEAH" "OKAY" AND "UH HUH" BUT DOES NOT FOLLOW DIRECTION. DOES RECOGNIZE AND ANSWERS "I LOVE YOU, TOO". AGITATED PRIOR TO SIMON INSERTION, BUT RESTING WELL SINCE. NO BOWEL MOVEMENT TODAY. SPEECH THERAPY UNABLE TO COMPLETE SPEECH EVAL PT TURNED HEAD AWAY FROM ANY PO INTAKE. DECISION MADE TO CHANGE TO COMFORT CARE. GIVEN INFO ON HOW HE CAN GIVE WATER WITH SPONGES AND BE BY HER SIDE. HE HAS MANY QUESTIONS. WILL HAVE PALLIATIVE CARE CHECK IN c HIM TOMORROW. BED IN LOWEST POSITION, CALL LIGHT WITHIN REACH, ALL NEEDS MET. REPORT TO ONCOMING NURSE.
--- NOTE | 2024-06-04 08:36 | NUR ---
PATIENT'S , ARCHIE, TO THIS RN, STATING HE'D LIKE THE IV PUT BACK IN HIS . STATES HE DOES NOT UNDERSTAND WHY SHE IS NOT BEING GIVEN IV FLUIDS AND NUTRITION. PATIENT WAS GIVEN SMALL SIP OF WATER OF WHICH SHE HELD IN HER MOUTH AND DID NOT SWALLOW; EVENTUALLY SPIT OUT, PER NIGHT NURSE. PALLIATIVE CCARE NURSE, JUDITH, NOTIFIED.
[2024-06-04] MEDS ORDERED: Bisacodyl 5 MG TabEC PO PRN (13:55)
--- NOTE | 2024-06-04 17:37 | NUR ---
END OF SHIFT SUMMARY: ALERT DURING FIRST PART OF SHIFT; SLEEPING FOR REMAINDER. AT BEDSIDE UNTIL ~1500, THEN WENT HOME FOR SHOWER AND REST. VERY OVERWHELMED WITH DECISIONS PRESENTED TO HIM. ORAL CARE AND REPOSITIONING PROVIDED. BED CRADLE PLACED TO MAINTAIN BLANKET ELEVATION OFF OF TOES. ONE DOSE 5MG ROXANOL TODAY FOR GRIMACING. SIMON PATENT AND DRAINING. BED IN LOWEST POSITION, CALL LIGHT WITHIN REACH, ALL NEEDS MET. REPORT TO ONCOMING NURSE.
--- NOTE | 2024-06-04 17:55 | NUR ---
CALL FROM PATIENT'S SISTER, VICKI, WANTING TO SPEAK WITH PATIENT. PATIENT SLEEPING AND IS NOT LUCID ENOUGH FOR PHONE CALL. SHE HAS ASKED THAT IF SEAMUS HAS A LUCID, MORE AWAKE MOMENT, IF SOMEONE WOULD CALL HER, DAY OR NIGHT, SO SHE CAN TELL HER GOODBYE. NUMBER IN CHART.
--- NOTE | 2024-06-04 18:40 | NUR ---
PATIENT AWAKE AND QUITE TALKATIVE, REPEATING STAFF SENTENCES AND LAUGHING. CALLED SISTER, VICKI, FOR HER TO TALK TO HER.
--- NOTE | 2024-06-05 03:22 | NUR ---
SHIFT SUMMARY LYING IN BED IN NO ACUTE DISTRESS, REPOSITIONED AT REGULAR INTERVALS, NO S/SX PAIN OBSERVED, PLEASANTLY CONFUSED AT REST, RESISTIVE WITH ANY PHYSICAL CARE, CLAMPS MOUTH WHEN ORAL CARE ATTEMPTED, WILL CONT TO ENCOURAGE AND OFFER MOUTH CARE, RESPIRATIONS OBSERVED AT 14 TO 24 ON ROUNDS & EVEN REG & NONLABORED ,LEs ELEVATED ON PILLOWS , ARMS WERE COOL,WARM BLANKET PLACED,PT SMILES INTERMITTENTLY W/A, REASSURANCE PROVIDED NEEDED WHEN ANXIOUS, CALM MOST OF THE TIME
--- NOTE | 2024-06-05 15:22 | NUR ---
COMFORT CARE SUPPORTIVE VISIT: NICKY IS OBTUNDED THIS MORNING. AUDIBLE RHONCHI NOTED FROM 3 FT AWAY. NOTHING TO ORALLY SUCTION. ORAL CARE PROVIDED. NO S/SX OF DISCOMFORT NOTED. URINARY OUTPUT HAS DECREASED IN THE LAST 24 HOURS. SIMON IS PATENT AND DRAINING. URINE IS DARK CRANBERRY COLORED WITH SEDIMENT. SHE IS WARM TO THE TOUCH. AFEBRILE AT THIS TIME. PRIMARY RN TO CONTINUE MONITORING FOR ELEVATED TEMP AND ADMINISTER TYLENOL SUPPOSITORY NEEDED PER EMAR. LATHE HAND UPDATED WITH PT S CURRENT STATUS. CM TO CONTINUE WITH [facility] PLACEMENT. D/C PLANS MAY CHANGE IF PT CONTINUES TO TRANSITION TO ACTIVE PASSING. PC TO REMAIN AVAILABLE NEEDED.
--- NOTE | 2024-06-05 15:42 | NUR ---
Spiritual care visit conducted. I had a lengthy visit with the patient's spouse, Vineet and his son. Patient was minimally responsive the entire visit. I conducted a life review and learned about how the couple met 10 yrs ago, about the patient's strong Amish beleifs and about the kind and generous person the patient is. We discussed , dying and the afterlife. I provided anticipatory grief support, theological insights and prayer. Family responded well and showed signs of reduced stress and of being comforted. I will continue to remain available.
--- NOTE | 2024-06-05 15:43 | NUR ---
BISACODYL TAB CHANGED TO SUPPOSITORY PT CAN NOT TOLERATE PO INTAKE.
[2024-06-05] MEDS ORDERED: Bisacodyl 10 MG Supp PR PRN (15:45)
--- NOTE | 2024-06-06 04:32 | NUR ---
PT A&O TO FAMILY, ABLE TO ANSWER SIMPLE QUESTIONS AND FORM SHORT SENTENCES, SPOUSE AT BEDSIDE T/O THE NIGHT, MEDICATED PER MAR FOR PAIN/COMFORT, REPOS Q2 FAMILY ALLOWS, SLEEPING W/SPOUSE AT BEDSIDE, WILL CONT TO MONITOR UNTIL REPORT GIVEN TO ONCOMING NURSE.
--- NOTE | 2024-06-06 09:49 | NUR ---
Patient is lying in bed and looks peaceful. I had a legthy visit with her spouse, Vineet. 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 He tells me about the patient's generous, kind and joyful characteristics and about his how he has taken care of her in their travel trailor for the last 5 yrs. It was only a struggle in the last 2 yrs in terms of her dementia. He is tearful at times but voices great appreciation for the spiritual care visit. I will cotninue to remain available.
--- NOTE | 2024-06-06 13:04 | NUR ---
COMFORT CARE SUPPORTIVE VISIT: PT LYING SUPINE, NO S/SX OF DISTRESS NOTED. ORAL CARE PROVIDED. NO RESPONSE ON GAG REFLEX. SPOUSE, ARCHIE ENTERED ROOM, WHEN PT HEARD HIS VOICE SHE AWOKE AND CHUCKLED. SHE SPOKE A SINGLE WORD AND THEN JUST SMILED. SHE REMAINED 0/10 PER FLACC SCALE WHEN AWAKE. SHE WAS ABLE TO COUGH WITH LIGHT WHITE SECREATION. SUCTION PROVIDED. PC TO REMAIN AVAILABLE NEEDED.
--- NOTE | 2024-06-06 16:42 | NUR ---
SHIFT SUMMARY: PT IS A&OX3;SELF, PERSON, AND PLACE. PATIENT REMAINS COMFORTABLE; HAS DENIED PAIN AND ANXIETY THROUGHOUT THE SHIFT. FAMILY HAS PERIODICALLY BEEN AT BEDSIDE. PATIENT ABLE TO MAKE NEEDS KNOWN ANSWERING MOST QUESTIONS APPROPRIATELY AND PER PATIENT'S MORE CLEARLY THAN THE PREVIOUS DAYS. PATIENT IS NOT EATING OR DRINKING; ATTEMPT MADE TO GIVE PATIENT COFFEE PER REQUEST, BUT PATIENT'S REFUSED DUE TO PATIENT HAVING DIFFICULTY SWALLOWING WITH PRIOR DRINNKING. ADVISED PATIENT'S THAT IF THE PATIENT WISHES TO EAT AND DRINK SHE IS ABLE TO DO SO IF PATIENT ALERT ENOUGH AND ABLE TO FOLLOW INSTRUCTIONS. PATIENT CURRENTLY IN BED, RESTING, RESPIRATIONS EVEN AND UNLABORED;DRY HAS NOT NEEDING MEDICATION THIS SHIFT; NO OBSERVATIONS MADE TO INDICATE NEED. CALL LIGHT WITHIN REACH, BED ALARM SET, NO SIGNS OR SYMPTOMS OF DISTRESS, PLAN OF CARE ONGOING; PENDING PLACEMENT ON HOSPICE.
--- NOTE | 2024-06-07 04:23 | NUR ---
PT WAS AWAKE AND TALKING (MOSTLY NON-SENSICAL) UNTIL 0400, ATTEMPTED TO GET OUT OF BED A FEW TIMES, SPOUSE AT BEDSIDE T/O THE NIGHT ASSISTING PT TO DRINK WATER & AT ONE POINT ASKING BREAK NURSE TO "GIVE MY IV FLUIDS SINCE SHE ISN'T DRINKING MUCH', REPOSITIONED FOR COMFORT T/O THE NIGHT, PT ACCEPTING OF ORAL CARE, DENIED PAIN T/O THE NIGHT, SLEEPING AT THIS TIME, BED ALARM ACTIVE, WILL CONT TO MONITOR UNTIL REPORT GIVEN TO ONCOMING NURSE.
--- NOTE | 2024-06-07 09:47 | NUR ---
Patient is sitting up in bed and is all smiles this morning. There are no family present. I introduce myself and patient reaches out her hand and holds on to it until the conclusion of the visit. She is confused and speaks in alphabet soup, but is happy and does close her eyes when I provided prayer. She beams even more after the prayer and clearly says, "thank you." This is the first time this pharmacognosy teacher has seen the patient awake and so it was wonderful to meet the beautiful person I had heard so many good things about (from Vineet, her spouse). I will continue to remain available to patient and family.
--- NOTE | 2024-06-07 16:29 | NUR ---
SHIFT SUMMARY: PATIENT CONTINUES TO BE ALERT AND INTERACTIVE TODAY. PATIENT EATING AND DRINKING. SHE IS RESTING AT THIS TIME, FAMILY IS NOT AT BEDSIDE. SHE DENIES PAIN AND REPORTS BEING COMFORTABLE. THE PLAN IS TO WAIT TO HEAR BACK FROM [facility] TO SEE IF THEY WILL ACCEPT THE PATIENT TO RECEIVE HOSPICE CARE. IN THE MEANTIME THE PATIENT WILL CONTINUE ON COMFORT CARE UNTIL DISCHARGE; WHICH WILL BE MONDAY OR MONDAY PER CASE MANAGEMENT. CALL LIGHT WITHIN REACH, BED ALARM ON, NO SIGNS OR SYMPTOMS OF DISTRESS, PLAN OF CARE ONGOING.
--- NOTE | 2024-06-08 06:01 | NUR ---
PT A TO SELF ONLY, DENIED PAIN T/O SHIFT, HAS BEEN VERY IMPULSIVE THROUGHOUT THE NIGHT-MOSTLY REDIRECTABLE BUT HAS DIFFICULTY FOLLOWING DIRECTIONS, ATE DINNER INDEP AND HAS BEEN DRINKING FLUIDS INDEP, MEDS WHOLE IN THIS SHIFT, UP TO BSC FOR BM, 2MG PO ATIVAN & 1MG HALDOL THIS SHIFT; PT RESTING AT THIS TIME WITH EYES CLOSED, BED ALARM ACTIVE, WILL CONT TO MONITOR UNTIL REPORT GIVEN TO ONCOMING NURSE.
--- NOTE | 2024-06-08 15:02 | NUR ---
COMFORT CARE VISIT: PT IN BED RESTING EYES SHUT RR E/U. NICKY DOES NOT AWAKEN FOR VISIT. APPEARS COMFORTABLE AND IN NO APPARENT DISTRESS. SPOUSE ARCHIE AND HIS SON IS PRESENT. DEPOSITION REPORTER STAFF ARE SETTING UP PULL OUT COUCH BED SO ARCHIE CAN SPEND THE NIGHT TONIGHT. OFFERED ENCOURAGEMENT AND SUPPORT TO FAMILY AND PROVIDED INFORMATION ON EXPECTATIONS. ARCHIE REPORTED HE IS AWAITING A FACILITY TO ACCEPT NICKY FOR CARE. ANSWERED QUESTIONS/CONCERNS AND PROVIDED EDUCATION ON DISCHARGE PROCESS. PROVIDED FEEDBACK TO STAFF ON THEIR GREAT CARE OF PT. ICE WATER ON COMFORT CART REFILLED. NO OTHER NEEDS IDENTIFIED AT THIS TIME.
--- NOTE | 2024-06-08 17:38 | NUR ---
SHIFT SUMMARY: PATIENT HAS BEEN SLEEPING MOST OF THE SHIFT WILL SMALL DURATIONS OF AWAKENFULNESS. SHE HAS DRANK WATER AND THAT IS IT. SHE IS CURRENTLY SLEEPING AGAIN, RESP EVEN AND UNLABORED. BED ALARM ON, NO FAMILY AT BEDSIDE, NO SIGNS OR SYMPTOMS OF DISTRESS,PLAN OF CARE ONGOING.
--- NOTE | 2024-06-09 06:46 | NUR ---
SHIFT SUMMARY PT ALERT AND ORIENTED TIMES 2-3 . PT ADMITTED FOR STROKE. IS AT BEDSIDE FOR SUPPORT. PT HAS SIMON STRAIGHT CATH. 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 GAVE 0.5 ATIVAN, WHICH APPEARED TO TOLERATE WELL AND WAS EFFECTIVE. PT WAS ABLE WITH TIMES 2 ASSIST TO AMBULATE TO BEDSIDE COMMODE WITH A LOT OF DIRECTION. BED IN LOW POSITION, CALL LIGHT WITHIN REACH, RAILS TIMES 2.
--- NOTE | 2024-06-09 07:11 | NUR ---
ASSUMED CARE: PT RESTING QUIETLY IN BED. AT BEDSIDE. NO ACUTE NEEDS OR CONCERNS AT THIS TIME.
--- NOTE | 2024-06-09 10:51 | NUR ---
PT'S AT BEDSIDE. HE CONFIRMED THAT HE WANTS PT TO RECEIVE SMALLER DOSES OF MEDICATION SO THAT SHE DOES NOT SLEEP ALL DAY. PT IS AWAKE NOW AND EATING BREAKFAST. NO ACUTE NEEDS OR CONCERNS.
--- NOTE | 2024-06-09 13:45 | NUR ---
REPORT GIVEN TO GABINO THOMAS.
--- NOTE | 2024-06-09 18:02 | NUR ---
SHIFT SUMMARY PATIENT CONTINUES ON COMFORT CARE. AT BEDSIDE. PATIENT AROUSES. CONFUSED BUT PLEASANT. PATIENT TURNED AND ATTENDS CHECKED NEEDED. SUPPORT PROVIDED TO BOTH AND PATIENT.
--- NOTE | 2024-06-10 05:53 | NUR ---
SHIFT SUMMARY PT ALERT AND ORIENTED TIMES 2-3 . PT ADMITTED FOR STROKE. IS AT BEDSIDE FOR SUPPORT. PT NOT ANXIOUS OR AGITATED TONIGHT AND DID NOT TRY AND GET OUT OF BED MUCH. PT WAS ABLE WITH TIMES 2 ASSIST TO AMBULATE TO BEDSIDE COMMODE WITH A LOT OF DIRECTION. TOOK PT IN WHEELCHAIR AROUND THE UNIT A FEW TIMES WHICH SHE APPEARED TO ENJOY. PT HAD LARGE BM TONIGHT. PT BED IN LOW POSITION, CALL LIGHT WITHIN REACH, RAILS TIMES 2.
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
--- NOTE | 2024-06-10 15:40 | NUR ---
Patient's spouse, Vineet, meets me in the hallway and tells me about the transformation the patient has made for the better. He tells me about the discharge challenges that he has given the clutter in the patient's RV and the smallness of his RV and that both have very steep stairs and no room for a hospital bed. We celebrate that he has these problems because she was so close to earlier last week. I provided therapeutic listening, levity and encouragment. Vineet voices his gratitude for the spiritual care visit.
--- NOTE | 2024-06-10 17:28 | NUR ---
SHIFT SUMMARY PT REMAINS ON COMFORT CARE. NO COMFORT MEDICATIONS ADMINISTERED THIS SHIFT. PT DENIES PAIN, NO ANXIETY OR DISTRESS NOTED. SPOUSE AT BEDSIDE MAJORITY OF DAY. PT A/O TO SELF AND SPOUSE, FORGETFUL TO OWN LIMITATIONS. BED ALARM ON. FAIR APPETITE, PT IN CONTROL OF INTAKE. RESPIRATIONS EVEN AND UNLABORED.
--- NOTE | 2024-06-11 06:44 | NUR ---
SHIFT SUMMARY PT ALERT AND ORIENTED TIMES 2-3 . PT ADMITTED FOR STROKE. IS AT HOME TONIGHT. . PT WAS ANXIOUS AND CONFUSED TONIGHT TRYING TO EXIT BED SEVERAL TIMES AND HARDER TO REDIRECT. SITTER WAS ASSIGNED FOR PT SAFETY. PT WAS GIVEN ATIVAN AND HALDOL WITH LITTLE EFFECT. PT WAS MOVED TO RECLINER CHAIR SHE WAS TIRED OF BEING IN THE BED. PT APPEARS TO BE RESTLING COMFORTABLY NOW WITH SITTER IN ROOM.
--- NOTE | 2024-06-11 15:58 | NUR ---
Patient is alert and has her spouse, Vineet and dog, Checkers bedside. The patient smiles often and voices that she is doing better and that "Checkers is a great dog." Vineet tells me about being overwhelmed by all the paper work that he has to fill out to get his transferred over to [facility] in [place]. We talk about taking it one form at a time and one question at a time until he works through it. I encouraged self care for the spouse and a calming presence for the patient. I will continue to remain available to the patient and family.
--- NOTE | 2024-06-11 18:05 | NUR ---
SHIFT SUMMARY PT REMAINS ON COMFORT CARE. 1 MG ATIVAN ADMINISTERED ONE TIME FOR RESTLESSNESS AND AGITATION, EFFECTIVE. POOR APPETITE TODAY, SNACKS AND MEALS OFFERED. PT IN CONTROL OF INTAKE. PT DENIES PAIN T/O SHIFT. RESPIRATIONS REMAIN EVEN AND UNLABORED. BARRIER CREAM APPLIED TO COCCYX TO REDUCE RISK FOR SKIN BREAKDOWN, PT REPOSITIONED TOLERATED.
[2024-06-12] MEDS ORDERED: LORazepam 2 MG/ML 1ML Injection IV PRN (01:40)
--- NOTE | 2024-06-12 05:48 | NUR ---
SHIFT SUMMARY NOC PT A/O TO SELF. HIGHLY CONFUSED AND SPEAKS NONSENSICALLY. ON COMFORT CARE MEASURES. NO ACUTE EVENTS TO REPORT. PT HAS NO C/O OF PAIN, AND REQUESTED TO SLEEP IN RECLINER. PT HAS SIMON IN PLACE DRAINING CLEAR YELLOW URINE TO GRAVITY. PT EXPECTED TO DISCHARGE TO [facility] ON 06/13/24. PT CURRENTLY RESTING WITH CHAIR ALARM ON, BED IN LOWEST POSITION, AND CALL LIGHT WITHIN REACH.
[2024-06-12] MEDS ORDERED: QUEtiapine Fumarate 50 MG TAB PO PRN (13:00)
--- NOTE | 2024-06-12 18:04 | NUR ---
SHIFT SUMMARY NO ACUTE CHANGES. PT REMAINS ON COMFORT CARE. NO COMFORT MEDICATIONS ADMINISTERED TODAY - PT DENIES PAIN, NO S/SX OF PAIN OBSERVED BY RN. RESPIRATIONS EVEN AND UNLABORED, REMAINS ON RA. NO AGITATION OR RESTLESSNESS. BISACODYL RECTAL SUPP ADMINISTERED TODAY, PRUNE JUICE PROVIDED. PLAN TO DC TO [facility] TOMORROW ON HOSPICE.
[2024-06-12] MEDS ORDERED: QUEtiapine Fumarate 50 MG TAB PO SCH (21:00)
--- NOTE | 2024-06-13 04:30 | NUR ---
SHIFT SUMMARY PATIENT HAS HAD A RESTLESS NIGHT TONIGHT. SHE MADE MULTIPLE ATTEMPTS TO GET OUT OF BED BY HERSELF AND IS UNSTEADY ON HER FEET. 0.5MG OF ORAL ATIVAN WAS ADMINISTERED. PATIENT IS SLEEPING AT THIS TIME. SIMON CATHETER IS PATENT. BED ALARM IS SET. SAFETY PRECAUTIONS ARE BEING MAINTAINED.
[2024-06-13] MEDS ORDERED: ACET120S PR (10:33)
[2024-06-13] MEDS ORDERED: Seroquel Xr50 MG PO (10:33)
[2024-06-13] MEDS ORDERED: QUET25 PO (10:34)
--- NOTE | 2024-06-13 11:35 | NUR ---
PT DISCHARGED AT 1055 VIA WHEELCHAIR WITH [facility]. SIMON EMPTIED. ATTENDS CHECKED AND DRY. BELONGINGS PACKED AND SENT WITH THE PATIENT.
== END 2024-06-13 10:57 | disposition hospice, home (50) ==
LOC: ER 18:59 → MEDS 19:00 → ERHOLD 19:00 → MEDS 06-02 02:00
PROVIDERS: Family Medicine; Student in an Organized Health Care Education/Training Program; ADMIT Internal Medicine
DX: F03.C0 Unspecified dementia, severe, without behavioral disturbance, psychotic disturbance, mood disturbance, and anxiety (principal); G93.40 Encephalopathy, unspecified; I73.9 Peripheral vascular disease, unspecified; I63.9 Cerebral infarction, unspecified; R47.01 Aphasia; I11.0 Hypertensive heart disease with heart failure; I50.20 Unspecified systolic (congestive) heart failure; J44.9 Chronic obstructive pulmonary disease, unspecified; R33.9 Retention of urine, unspecified; Z66 Do not resuscitate; Z79.899 Other long term (current) drug therapy
CPT/HCPCS: 0241U; 36415; 51702; 70450; 70496; 70498; 71046; 80053; 80069; 80320; 81001; 82140; 82947; 83690; 84484; 85025; 93005; 93010; 93306; 93922; 96374-59; 99285-25; A9270; G0378; J1650; J2405; J3010; J7030; J7060; J7799; Q9967

== ENCOUNTER → 2024-06-26 | Outpatient (CLI) | payer OTHER ==
[~2024-06-26] MED LIST changes: +ACET120S PR; +QUET25 PO; +Seroquel Xr50 MG PO
[2024-06-26 17:56] LABS: Source, Urine Clean Catch
[2024-06-26 18:48] LABS: Appearance, Urine Cloudy (Clear); Bilirubin, Urine Neg (Neg); Blood, Urine Neg (Neg); Color, Urine Yellow (P-Yellow); Glucose Qualitative, Urine Neg (Neg); Ketones, Urine Neg (Neg); Leukocyte Esterase, Urine 3+ (Neg); Nitrite, Urine Pos (Neg); Protein, Urine 2+ (Neg); Urobilinogen, Urine NORM (Normal)
[2024-06-26 19:14] LABS: Bacteria Many /hpf; Red Blood Cells, Urine Not Seen /hpf (0-2); Squamous Epithelial Cells Rare /hpf (Few); Triple Phosphate Crystals Mod /hpf
== END ==
LOC: LAB SHORT 17:53 → LAB 17:53
PROVIDERS: Family Medicine
DX: N39.0 Urinary tract infection, site not specified (principal)
CPT/HCPCS: 81001; 87086

== ENCOUNTER 2024-07-01 01:06 | Day surgery (SDC) | payer OTHER ==
[2024-07-01] MEDS ORDERED: Lidocaine HCl 4% Cream 5 GM ONE (12:31)
== END 2024-07-01 23:00 | disposition home or self-care (01) ==
LOC: WOUND 01:06
DX: L97.812 Non-pressure chronic ulcer of other part of right lower leg with fat layer exposed (principal); I25.10 Atherosclerotic heart disease of native coronary artery without angina pectoris; I73.9 Peripheral vascular disease, unspecified; I63.9 Cerebral infarction, unspecified; I87.2 Venous insufficiency (chronic) (peripheral); S81.801D Unspecified open wound, right lower leg, subsequent encounter; X58.XXXD Exposure to other specified factors, subsequent encounter
CPT/HCPCS: A6213; A9270; G0463

== ENCOUNTER 2024-07-08 01:24 | Day surgery (SDC) | payer OTHER ==
[2024-07-08] MEDS ORDERED: Lidocaine HCl 4% Cream 5 GM ONE (10:06)
== END 2024-07-08 23:00 | disposition home or self-care (01) ==
LOC: WOUND 01:24
DX: L97.812 Non-pressure chronic ulcer of other part of right lower leg with fat layer exposed (principal); I25.10 Atherosclerotic heart disease of native coronary artery without angina pectoris; S81.801A Unspecified open wound, right lower leg, initial encounter; I73.9 Peripheral vascular disease, unspecified; I63.9 Cerebral infarction, unspecified; I87.2 Venous insufficiency (chronic) (peripheral); X58.XXXA Exposure to other specified factors, initial encounter
CPT/HCPCS: A6213; A9270

== ENCOUNTER 2024-07-15 02:11 | Day surgery (SDC) | payer OTHER ==
[2024-07-15] MEDS ORDERED: Lidocaine HCl 4% Cream 5 GM ONE (15:15)
== END 2024-07-15 23:00 | disposition home or self-care (01) ==
LOC: WOUND 02:11
DX: L97.812 Non-pressure chronic ulcer of other part of right lower leg with fat layer exposed (principal); I73.9 Peripheral vascular disease, unspecified; I87.2 Venous insufficiency (chronic) (peripheral); I25.10 Atherosclerotic heart disease of native coronary artery without angina pectoris
CPT/HCPCS: A6213; A9270

== ENCOUNTER 2024-07-22 01:51 | Day surgery (SDC) | payer OTHER | END 2024-07-22 23:21 | disposition home or self-care (01) | LOC: WOUND 01:51 | DX: L97.812 Non-pressure chronic ulcer of other part of right lower leg with fat layer exposed (principal); I73.9 Peripheral vascular disease, unspecified; I63.9 Cerebral infarction, unspecified; I87.2 Venous insufficiency (chronic) (peripheral) | CPT/HCPCS: A6213; G0463 ==

== ENCOUNTER 2024-07-29 02:42 | Day surgery (SDC) | payer OTHER | END 2024-07-29 22:51 | disposition home or self-care (01) | LOC: WOUND 02:42 | DX: L97.812 Non-pressure chronic ulcer of other part of right lower leg with fat layer exposed (principal); I73.9 Peripheral vascular disease, unspecified; I87.2 Venous insufficiency (chronic) (peripheral); I25.10 Atherosclerotic heart disease of native coronary artery without angina pectoris | CPT/HCPCS: A6213; G0463 ==

== ENCOUNTER 2024-08-05 01:02 | Day surgery (SDC) | payer OTHER | END 2024-08-05 23:41 | disposition home or self-care (01) | LOC: WOUND 01:02 | DX: L97.812 Non-pressure chronic ulcer of other part of right lower leg with fat layer exposed (principal); I87.2 Venous insufficiency (chronic) (peripheral); I73.9 Peripheral vascular disease, unspecified; I25.10 Atherosclerotic heart disease of native coronary artery without angina pectoris; F03.90 Unspecified dementia, unspecified severity, without behavioral disturbance, psychotic disturbance, mood disturbance, and anxiety | CPT/HCPCS: A6213; G0463 ==

== ENCOUNTER 2024-08-12 01:26 | Day surgery (SDC) | payer OTHER | END 2024-08-12 23:00 | disposition home or self-care (01) | LOC: WOUND 01:26 | DX: L97.812 Non-pressure chronic ulcer of other part of right lower leg with fat layer exposed (principal); I87.2 Venous insufficiency (chronic) (peripheral); I73.9 Peripheral vascular disease, unspecified; I25.10 Atherosclerotic heart disease of native coronary artery without angina pectoris; F03.90 Unspecified dementia, unspecified severity, without behavioral disturbance, psychotic disturbance, mood disturbance, and anxiety; Z86.73 Personal history of transient ischemic attack (TIA), and cerebral infarction without residual deficits | CPT/HCPCS: A6213; G0463 ==

== ENCOUNTER 2024-08-19 01:52 | Day surgery (SDC) | payer OTHER | END 2024-08-19 23:00 | disposition home or self-care (01) | LOC: WOUND 01:52 | DX: L97.819 Non-pressure chronic ulcer of other part of right lower leg with unspecified severity (principal); I25.10 Atherosclerotic heart disease of native coronary artery without angina pectoris; F03.90 Unspecified dementia, unspecified severity, without behavioral disturbance, psychotic disturbance, mood disturbance, and anxiety; I73.9 Peripheral vascular disease, unspecified; I63.9 Cerebral infarction, unspecified; I87.2 Venous insufficiency (chronic) (peripheral) | CPT/HCPCS: G0463 ==